=== PATIENT | male | born 1945 | race Hispanic/Latino ===

== ENCOUNTER → 2018-10-16 | Outpatient (CLI) | payer OTHER | END | disposition home or self-care (01) | LOC: RAH 10:00 | PROVIDERS: ATTEND Family Medicine | DX: N28.1 Cyst of kidney, acquired (principal); I70.90 Unspecified atherosclerosis | CPT/HCPCS: 76700 ==

== ENCOUNTER → 2018-12-30 | Outpatient (CLI) | payer OTHER | END | disposition home or self-care (01) | LOC: RAH 09:40 | PROVIDERS: ATTEND Family Medicine | DX: Q61.01 Congenital single renal cyst (principal); E27.8 Other specified disorders of adrenal gland | CPT/HCPCS: 76770 ==

== ENCOUNTER 2019-03-13 08:32 | Day surgery (SDC) | payer OTHER ==
--- NOTE | 2019-03-11 11:14 | NUR ---
ABNORMAL EKG INFORMED DR PEMBERTON REGARDING ABNORMAL EKG. PER DR PEMBERTON, OK TO PROCEED WITH SCHEDULED PROCEDURE PLANNED. Addendum: 03/12/19 at 1126 by JANET PATEL RN RN INCORRECT TIME. TIME SHOULD BE 1800 ON 03/11/19.
[2019-03-11 16:02] LABS: EOSINOPHILS % (AUTO) 3.2 % (0.0-8.0); HEMATOCRIT 34.9 % (42-54); LYMPHOCYTES % (AUTO) 20.4 % (21.0-51.0); MEAN CORPUSCULAR HEMOGLOBIN 30.1 pg (27.0-33.0); MEAN CORPUSCULAR HGB CONC 35.8 g/dL (32.0-36.0); MEAN CORPUSCULAR VOLUME 84.2 fL (79-99); MONOCYTES % (AUTO) 9.2 % (3.0-13.0); NEUTROPHILS % (AUTO) 66.2 % (40.0-77.0); PLATELET COUNT (AUTO) 218 K/uL (130-400); RED BLOOD CELL COUNT(AUTO) 4.15 MIL/uL (4.50-6.20); RED CELL DISTRIBUTION WIDTH 13.7 % (11.0-15.5)
[2019-03-11 16:09] LABS: CREATININE 1.5 mg/dL (0.5-1.5); POTASSIUM 4.4 mmol/L (3.5-5.1)
[2019-03-11 16:25] LABS: APPEARANCE,URINE Clear (CLEAR); BILIRUBIN,URINE Negative (NEGATIVE); COLOR,URINE Yellow (YELLOW); GLUCOSE, URINE (UA) Negative (NEGATIVE); KETONES,URINE Negative (NEGATIVE); LEUKOCYTE ESTERASE ,URINE Negative (NEGATIVE); NITRATE,URINE Negative (NEGATIVE); OCCULT BLOOD,URINE Trace (NEGATIVE); PROTEIN,URINE Negative (NEGATIVE); UROBILINOGEN,URINE 0.2 mg/dL (0.2-1.0)
[2019-03-11 16:52] LABS: BACTERIA,URINE Rare /HPF (None Seen); RBC,URINE 0-1 /HPF (0-1); SQUAMOUS EPITHELIAL CELL,UR None Seen /HPF (0-2); WBC,URINE 0-1 /HPF (0-1)
[2019-03-11 17:18] VITALS: BP 175/88
--- NOTE | 2019-03-11 17:56 | NUR ---
ALLERGIES PER PATIENT, HE IS NOT ALLERGIC TO ANY MEDICATIONS. HE STATES HE IS ONLY ALLERGIC TO [place].
[2019-03-13] VITALS (17 sets, daily range): BP systolic 122–161; BP diastolic 70–91
[~2019-03-13] VITALS: Ht 180.3 cm; Wt 94.4 kg
[~2019-03-13 08:32] MED LIST: GENTAMICIN 80 MG/NS 100 ML PB 100 ML IV SCH; LISI40TA4 PO; ZOSYN 3.375GM+NS 50ML 50 ML IV SCH
[2019-03-13] MEDS ORDERED: SODIUM CHLORIDE 0.9% 1000ML 1,000 ML IV ONE (09:09)
[2019-03-13] MEDS ORDERED: LEVO500T89 PO (10:21)
[2019-03-13] MEDS ORDERED: HYDR25TA PO (10:21)
--- NOTE | 2019-03-13 11:50 | NUR ---
SALINE ENEMA ORDER PER DR PERSAUD, UP TO BATHROOM. EXPELLED SMALL AMOUNT OF STOOL AND GAS
== END 2019-03-13 15:02 | disposition home or self-care (01) ==
LOC: DAH 08:32
PROVIDERS: ATTEND Urology
DX: C61 Malignant neoplasm of prostate (principal); N40.0 Benign prostatic hyperplasia without lower urinary tract symptoms; R97.20 Elevated prostate specific antigen [PSA]; Z72.89 Other problems related to lifestyle; Z98.890 Other specified postprocedural states; E66.9 Obesity, unspecified; Z68.29 Body mass index [BMI] 29.0-29.9, adult; Z79.899 Other long term (current) drug therapy; Z79.2 Long term (current) use of antibiotics; Z91.018 Allergy to other foods; Z87.891 Personal history of nicotine dependence; Z82.49 Family history of ischemic heart disease and other diseases of the circulatory system
CPT/HCPCS: 36415; 55700; 71045; 76942; 80048; 81001; 85025; 87088; 93005; A4215 ×2; A4221; A4222; A4223 ×2; A4358; A4600; A6260; J1580; J2543; J7030; J7120

== ENCOUNTER → 2019-05-30 | Outpatient (CLI) | payer OTHER ==
[~2019-05-30] MED LIST changes: -GENTAMICIN 80 MG/NS 100 ML PB 100 ML IV SCH; +HYDR25TA PO; +IOHEXOL 350 MG/ML 100ML INFUS..BTL IV ONE; +LEVO500T89 PO; -ZOSYN 3.375GM+NS 50ML 50 ML IV SCH
== END | disposition home or self-care (01) ==
LOC: RAH 08:16
PROVIDERS: ATTEND Internal Medicine Cardiovascular Disease
DX: I70.0 Atherosclerosis of aorta (principal); D35.00 Benign neoplasm of unspecified adrenal gland; I45.6 Pre-excitation syndrome; I71.02 Dissection of abdominal aorta; R94.31 Abnormal electrocardiogram [ECG] [EKG]
CPT/HCPCS: 71275; 74174; Q9967

== ENCOUNTER → 2019-06-05 | Outpatient (CLI) | payer OTHER ==
[~2019-06-05] MED LIST changes: -IOHEXOL 350 MG/ML 100ML INFUS..BTL IV ONE
== END | disposition home or self-care (01) ==
LOC: RAH 13:02
PROVIDERS: ATTEND Internal Medicine Cardiovascular Disease
DX: Z13.6 Encounter for screening for cardiovascular disorders (principal)
CPT/HCPCS: 75571

== ENCOUNTER → 2019-07-31 | Outpatient (CLI) | payer OTHER ==
[~2019-07-31] VITALS: Ht 180.3 cm; Wt 93.9 kg
[~2019-07-31] MED LIST changes: +REGADENOSON 0.4 MG/5 ML PF SYG IVP SCH
== END | disposition home or self-care (01) ==
LOC: SHCH 08:33
PROVIDERS: ATTEND Internal Medicine Cardiovascular Disease
DX: I25.89 Other forms of chronic ischemic heart disease (principal); I25.10 Atherosclerotic heart disease of native coronary artery without angina pectoris
CPT/HCPCS: 78452; 93017; 96374; A9500 ×2; J2785

== ENCOUNTER 2019-11-13 05:48 | Day surgery (SDC) | payer OTHER ==
[2019-11-13] VITALS (11 sets, daily range): BP systolic 118–155; BP diastolic 59–83; PULSE 66–81; RESP 12–20; TEMP 97.9
[2019-11-13] MEDS ORDERED: SODIUM BICARB 50MEQ 50ML VIAL ONE (10:06)
[2019-11-13] MEDS ORDERED: LIDOCAINE HCL 2% 20ML ONE (10:07)
[2019-11-13] MEDS ORDERED: NITROGLYCERIN 2 MG/VIAL VIAL IV ONE (10:07)
[2019-11-13] MEDS ORDERED: MIDAZOLAM HCL 1 MG/ML 2ML VIAL ONE ×2 (10:07→10:50)
[2019-11-13] MEDS ORDERED: HEPARIN SODIUM 1000UNIT/ML 10ML VIAL ONE (10:07)
[2019-11-13] MEDS ORDERED: MEPERIDINE-PF 25 MG/ML SYG ONE ×2 (10:07→10:50)
[2019-11-13] MEDS ORDERED: IOHEXOL 350 MG/ML 100ML INFUS..BTL IV ONE (10:12)
[2019-11-13] MEDS ORDERED: METHYLPREDNISOLONE SOD SUCC 125MG/2ML VIAL ONE (10:14)
[2019-11-13] MEDS ORDERED: DiphenhydrAMINE HCL 50 MG/ML VIAL ONE (10:15)
[2019-11-13] MEDS ORDERED: SODIUM CHLORIDE 0.9% 1000ML 1,000 ML IV SCH (11:21)
--- NOTE | 2019-11-13 16:30 | NUR ---
Pt clear for discharge. Tolerating fluids/solids well, voiding well, ambulating well. Pt denies any severe pain, shortness of breath, dizziness or lightheadedness. Pt does reports an upset stomach. He states that it is not severe, but that he can't tolerate eating and laying down. He states that he has gotten this feeling before and that it will feel better once he is able to walk around. Pt denies any chest pain/pressure, shortness of breath, aching in jaws/back/arms/neck or any other sensation. Pt instructed of emergency signs to be aware of and to call 911 if they occurred. Dressing to right groin remains clean, dry and intact, site soft, non-tender. Pt instructed in routine and emergency care of the right groin catheter site. Pt's spouse instructed in routine and emergency care at the vehicle.
== END 2019-11-13 17:15 | disposition home or self-care (01) ==
LOC: DAH 05:48
PROVIDERS: ATTEND Internal Medicine Cardiovascular Disease
DX: I73.9 Peripheral vascular disease, unspecified (principal); I71.4 Abdominal aortic aneurysm, without rupture; E78.5 Hyperlipidemia, unspecified; I25.10 Atherosclerotic heart disease of native coronary artery without angina pectoris; I10 Essential (primary) hypertension; Z85.46 Personal history of malignant neoplasm of prostate; Z79.899 Other long term (current) drug therapy; Z79.01 Long term (current) use of anticoagulants
CPT/HCPCS: 36415; 71045; 75625; 80048; 81001; 85025; 85610; 85730; 93005; 93306; 93356; 93458; 96374; A4215; A4216; A4221; A4222; A4223 ×3; A4606; A4663; C1760; C1894; J1200; J1644; J2175 ×2; J2250 ×2; J2930; J3490 ×3; Q9967

== ENCOUNTER 2019-11-19 12:00 | Inpatient (IN) | payer OTHER ==
[~2019-11-19] VITALS: Ht 177.8 cm; Wt 91.0 kg
[~2019-11-19 12:00] MED LIST changes: +ASPI-556 PO; +LABE200T5 PO; -LEVO500T89 PO; -LISI40TA4 PO; -REGADENOSON 0.4 MG/5 ML PF SYG IVP SCH; +ROSU5TAB12 PO
[2019-11-19 15:18] LABS: BASOPHILS % (AUTO) 0.4 % (0.0-5.0); HEMATOCRIT 34.1 % (42-54); LYMPHOCYTES % (AUTO) 10.1 % (21.0-51.0); MEAN CORPUSCULAR HEMOGLOBIN 27.9 pg (27.0-33.0); MEAN CORPUSCULAR HGB CONC 33.4 g/dL (32.0-36.0); MEAN CORPUSCULAR VOLUME 83.4 fL (79-99); MONOCYTES % (AUTO) 12.5 % (3.0-13.0); NEUTROPHILS % (AUTO) 72.6 % (40.0-77.0); PLATELET COUNT (AUTO) 206 K/uL (130-400); RED BLOOD CELL COUNT(AUTO) 4.09 MIL/uL (4.50-6.20); RED CELL DISTRIBUTION WIDTH 13.2 % (11.0-15.5); WHITE BLOOD COUNT (AUTO) 10.7 K/uL (4.8-10.8)
[2019-11-19 15:29] LABS: HEMOGLOBIN A1C 6.8 % (4.0-6.0)
[2019-11-19 15:31] LABS: INR 0.96 (0.85-1.15); PROTHROMBIN TIME 10.4 SEC (9.6-11.6)
[2019-11-19 15:32] VITALS: BP 173/81
[2019-11-19 15:36] LABS: ALBUMIN 3.8 g/dL (3.5-5.0); BILIRUBIN,TOTAL 0.3 mg/dL (0.2-1.0); CREATININE 1.6 mg/dL (0.5-1.5); POTASSIUM 3.4 mmol/L (3.5-5.1); TOTAL PROTEIN, SERUM 7.4 g/dL (6.0-8.3)
--- NOTE | 2019-11-19 16:19 | NUR ---
LABS ABNORMAL LABS REPORTED TO DR. RICE NO FURTHER ORDERS GIVEN.
[2019-11-20] VITALS (36 sets, daily range): BP systolic 101–175; BP diastolic 50–82
[2019-11-20] MEDS: CEFUROXIME SODIUM 1.5 GM VIAL IVP SCH ×2 (06:00→15:01)
[2019-11-20] MEDS ORDERED: SODIUM CHLORIDE 0.9% 1000ML 1,000 ML IV ONE ×2 (06:49→14:41)
[2019-11-20] MEDS ORDERED: MEGE40TA22 PO (08:13)
[2019-11-20] MEDS ORDERED: EPINEPHRINE 10 MG in SODIUM CHLORIDE 0.9% 240 ML IV PRN (08:45)
[2019-11-20] MEDS ORDERED: AMINOCAPROIC ACID 15,000 MG in SODIUM CHLORIDE 0.9% 500ML 500 ML IV PRN (08:45)
[2019-11-20] MEDS ORDERED: NOREPINEPHRINE BITARTRATE 8 MG in DEXTROSE 5%-WATER 250 ML IV PRN (08:45)
[2019-11-20] MEDS ORDERED: NITROGLYCERIN 50 MG/D5% WATER 1 BOT ONE (09:02)
[2019-11-20] MEDS ORDERED: PAPAVERINE HCL 30 MG/ML 2ML VIAL ONE (09:07)
[2019-11-20] MEDS ORDERED: CEFAZOLIN SODIUM 1 GM VIAL ONE ×3 (09:07→14:46)
[2019-11-20] MEDS ORDERED: HEPARIN SODIUM 1000UNIT/ML 10ML VIAL ONE ×2 (10:27→10:36)
[2019-11-20] MEDS ORDERED: FENTANYL CITRATE PF 50 MCG/1 ML 20ML VIAL IJ ONE (10:36)
[2019-11-20] MEDS ORDERED: ESMOLOL HCL 10 MG/ML 10 ML VIAL ONE (10:36)
[2019-11-20] MEDS ORDERED: PROTAMINE SULFATE 10 MG/ML 25ML VIAL IV ONE (10:36)
[2019-11-20] MEDS ORDERED: EPINEPHRINE 1 MG/ML AMPULE ONE (10:36)
[2019-11-20] MEDS ORDERED: PROPOFOL 10 MG/ML 20ML VIAL IV ONE (10:36)
[2019-11-20] MEDS ORDERED: AMINOCAPROIC ACID 250 MG/ML 20 ML VIAL IV ONE (10:36)
[2019-11-20] MEDS ORDERED: LIDOCAINE PF 2% 5ML ABBOJECT ONE ×2 (10:36→10:38)
[2019-11-20] MEDS ORDERED: NOREPINEPHRINE BITARTRATE 1 MG/1 ML ML IV ONE (10:36)
[2019-11-20] MEDS ORDERED: MIDAZOLAM HCL 1 MG/ML 2ML VIAL ONE (10:37)
[2019-11-20] MEDS ORDERED: ROCURONIUM 10MG/1ML SYR 10 MG/ML ML ONE (10:37)
[2019-11-20] MEDS ORDERED: SODIUM BICARB 8.4% 50ML SYRINGE ONE (10:37)
[2019-11-20] MEDS ORDERED: ETOMIDATE 2 MG/ML 10 ML VIAL ONE (10:37)
[2019-11-20] MEDS ORDERED: VASOPRESSIN 20 UNITS/ML 1ML VIAL ONE (10:38)
[2019-11-20] MEDS ORDERED: AMIODARONE HCL 50 MG/ML 3 ML VIAL ONE (10:38)
[2019-11-20] MEDS ORDERED: CEFAZOLIN SODIUM 1 GM VIAL IVP SCH (11:15)
[2019-11-20 11:39] LABS: ABG BASE EXCESS -0.5 mmol/L (-2.0-3.0); ABG HCO3 22.8 mmol/L (21.0-28.0); ABG PCO2 33 mmHg (35-48)
[2019-11-20] MEDS ORDERED: FENTANYL CITRATE PF 50 MCG/1 ML 5ML AMP IV ONE (14:42)
[2019-11-20] MEDS ORDERED: SODIUM CHLORIDE 0.9% 500ML 500 ML IV SCH (15:02)
[2019-11-20] MEDS ORDERED: NITROGLYCERIN 50 MG/D5% WATER 250 BOT IV SCH (15:15)
[2019-11-20] MEDS ORDERED: SODIUM CHLORIDE 0.9% 250 ML IV PRN (15:15)
[2019-11-20] MEDS ORDERED: DEXTROSE 50%-WATER 50 ML DISP.SYRIN IV PRN (15:15)
[2019-11-20] MEDS ORDERED: INSULIN REGULAR, HUMAN 3ML 100 UNIT in SODIUM CHLORIDE 0.9% 99 ML IV SCH ×2 (15:15)
[2019-11-20] MEDS ORDERED: GLUCAGON 1MG KIT 1 MG ML IM PRN (15:15)
[2019-11-20] MEDS ORDERED: MORPHINE SULFATE 2 MG/ML 1ML SYG IV PRN ×2 (15:15)
[2019-11-20] MEDS ORDERED: ONDANSETRON HCL 4 MG/2 ML VIAL IV PRN (15:15)
[2019-11-20] MEDS ORDERED: ACETAMINOPHEN 650 MG SUPPOSITORY RC PRN (15:15)
[2019-11-20] MEDS ORDERED: POTASSIUM PHOS 15 mMOL+NS250ML 250 ML IV PRN (15:15)
[2019-11-20] MEDS ORDERED: PROPOFOL 1000 MG/100 ML 100 ML IV PRN (15:15)
[2019-11-20] MEDS ORDERED: SODIUM CHLORIDE 0.9% 10 ML VIAL IVP PRN (15:15)
[2019-11-20] MEDS ORDERED: ALBUMIN (HUMAN) 5% 250 ML IV PRN (15:15)
[2019-11-20] MEDS ORDERED: AMINOCAPROIC ACID 15,000 MG in SODIUM CHLORIDE 0.9% 250 ML IV SCH (15:15)
[2019-11-20] MEDS ORDERED: NOREPINEPHRINE 4MG/NS 250ML 250 ML IV PRN (15:15)
[2019-11-20] MEDS ORDERED: EPINEPHRINE 10 MG in DEXTROSE 5%-WATER 250 ML IV PRN (15:15)
[2019-11-20] MEDS ORDERED: ACETAMINOPHEN 325 MG TAB PO PRN ×2 (15:15)
[2019-11-20] MEDS ORDERED: SODIUM CHLORIDE 0.9% 1000ML 1,000 ML IV SCH (15:15)
[2019-11-20] MEDS ORDERED: SODIUM BICARB 50MEQ 50ML VIAL IV PRN (15:15)
--- NOTE | 2019-11-20 15:25 | NUR ---
PT RECEIVED FROM SURGERY... BBS PRESENT ET TUBE IN PLACE. OGT CLAMPED. GARSIA TO BEDSIDE DRAINAGE. LT RADIAL A-LINE PRESENT ALSO A RT INTERNAL JUGULAR CENTRAL LINE. CHEST TUBES X 2 TO [facility].
[2019-11-20 15:40] LABS: ABG BASE EXCESS 1.2 mmol/L (-2.0-3.0); ABG HCO3 24.9 mmol/L (21.0-28.0); ABG OXYGEN SATURATION 98.2 % (95.0-99.0); ABG PCO2 36 mmHg (35-48)
[2019-11-20] MEDS: POTASSIUM CHLORIDE 20MEQ/100ML 100 ML IV PRN ×4 (15:43→21:02)
[2019-11-20 15:44] LABS: HEMATOCRIT 26.8 % (42-54); MEAN CORPUSCULAR VOLUME 82.5 fL (79-99); RED BLOOD CELL COUNT(AUTO) 3.25 MIL/uL (4.50-6.20); RED CELL DISTRIBUTION WIDTH 13.1 % (11.0-15.5); WHITE BLOOD COUNT (AUTO) 12.3 K/uL (4.8-10.8)
[2019-11-20 15:59] LABS: CREATININE 1.2 mg/dL (0.5-1.5); MAGNESIUM 1.7 mg/dL (1.80-2.40); PHOSPHORUS 3.8 mg/dL (2.5-4.9); POTASSIUM 3.5 mmol/L (3.5-5.1)
[2019-11-20 16:00] LABS: INR 1.09 (0.85-1.15); PARTIAL THROMBOPLASTIN TIME 29.2 SEC (26.3-35.5); PROTHROMBIN TIME 11.7 SEC (9.6-11.6)
[2019-11-20] MEDS: MAGNESIUM 2GM PREMIX 50ML 50 ML IV PRN (16:09)
[2019-11-20] MEDS: CALCIUM GLUCONATE 1 GM in SODIUM CHLORIDE 0.9% 50 ML IV PRN ×2 (16:09→19:50)
--- NOTE | 2019-11-20 16:43 | NUR ---
PT NOW RESPONSIVE AND FOLLOWING COMMANDS-NODS NO TO PAIN.
[2019-11-20 17:09] LABS: ABG BASE EXCESS 0.8 mmol/L (-2.0-3.0); ABG HCO3 24.6 mmol/L (21.0-28.0); ABG OXYGEN SATURATION 97.7 % (95.0-99.0); ABG PCO2 36 mmHg (35-48)
--- NOTE | 2019-11-20 17:36 | NUR ---
I HAD DR MARIE REVIEW CXR WHILE HE WAS IN CVR- HE WILL LET DR RICE KNOW. I ALSO SENT MESSAGE FOR DR RICE TO REVIEW CXR. PT IS STABLE AND IN NO DISTRESS. THANK YOU
[2019-11-20 18:35] LABS: ABG BASE EXCESS 0.9 mmol/L (-2.0-3.0); ABG OXYGEN SATURATION 94.8 % (95.0-99.0); ABG PCO2 38 mmHg (35-48)
--- NOTE | 2019-11-20 18:49 | NUR ---
HAND OFF REPORT GIVEN TO SHERICE GANNON
--- NOTE | 2019-11-20 19:15 | NUR ---
Dr. Nolan called and ordered another Stat chest XR for patient.
[2019-11-20 19:40] LABS: ABG BASE EXCESS 1.9 mmol/L (-2.0-3.0); ABG HCO3 25.8 mmol/L (21.0-28.0); ABG OXYGEN SATURATION 96.7 % (95.0-99.0); ABG PCO2 38 mmHg (35-48)
[2019-11-20] MEDS: ATORVASTATIN CALCIUM 10 MG TABLET PO SCH (19:53)
[2019-11-20] MEDS ORDERED: CEFAZOLIN SODIUM 1 GM VIAL IV SCH (20:15)
[2019-11-20 22:08] LABS: ABG BASE EXCESS 2.1 mmol/L (-2.0-3.0); ABG HCO3 26.3 mmol/L (21.0-28.0); ABG OXYGEN SATURATION 97.5 % (95.0-99.0); ABG PCO2 39 mmHg (35-48)
--- NOTE | 2019-11-20 22:20 | NUR ---
Extubated at 2220 to aerosol mask 35% after passing all respiratory weaning trials. Patient tolerated well.
[2019-11-20] MEDS: CEFAZOLIN SODIUM 1 GM VIAL IV SCH (22:41)
[2019-11-20 23:35] LABS: ABG OXYGEN SATURATION 96.5 % (95.0-99.0); ABG PCO2 38 mmHg (35-48)
[2019-11-20] MEDS ORDERED: CALCIUM GLUCONATE 1 GM/10 ML VIAL IV ONE (23:38)
[2019-11-21] VITALS (47 sets, daily range): BP systolic 99–177; BP diastolic 43–100
[2019-11-21] MEDS: TRAMADOL HCL 50 MG TABLET PO PRN ×4 (01:57→21:32)
[2019-11-21 04:03] LABS: ABG BASE EXCESS 0.5 mmol/L (-2.0-3.0); ABG HCO3 24.5 mmol/L (21.0-28.0); ABG OXYGEN SATURATION 96.7 % (95.0-99.0); ABG PCO2 38 mmHg (35-48)
[2019-11-21 04:30] LABS: HEMATOCRIT 27.8 % (42-54); MEAN CORPUSCULAR HEMOGLOBIN 27.8 pg (27.0-33.0); MEAN CORPUSCULAR HGB CONC 33.5 g/dL (32.0-36.0); MEAN CORPUSCULAR VOLUME 83.2 fL (79-99); RED BLOOD CELL COUNT(AUTO) 3.34 MIL/uL (4.50-6.20); WHITE BLOOD COUNT (AUTO) 13.7 K/uL (4.8-10.8)
[2019-11-21 04:45] LABS: INR 1.09 (0.85-1.15); PARTIAL THROMBOPLASTIN TIME 31.5 SEC (26.3-35.5); PROTHROMBIN TIME 11.7 SEC (9.6-11.6)
[2019-11-21 05:06] LABS: CREATININE 1.4 mg/dL (0.5-1.5); MAGNESIUM 1.9 mg/dL (1.80-2.40); PHOSPHORUS 3.3 mg/dL (2.5-4.9); POTASSIUM 4.3 mmol/L (3.5-5.1)
[2019-11-21] MEDS: MAGNESIUM 2GM PREMIX 50ML 50 ML IV PRN (05:12)
[2019-11-21] MEDS: CEFAZOLIN SODIUM 1 GM VIAL IV SCH ×2 (06:38→16:38)
[2019-11-21] MEDS: CALCIUM GLUCONATE 1 GM in SODIUM CHLORIDE 0.9% 50 ML IV PRN ×2 (07:47→13:23)
[2019-11-21] MEDS: ASPIRIN 325MG EC TAB 325 MG TABLET.DR PO SCH (07:56)
[2019-11-21] MEDS: FAMOTIDINE/PF 20 MG/2 ML VIAL IV SCH (07:58)
[2019-11-21] MEDS: FUROSEMIDE 10 MG/ML 2ML VIAL IV SCH ×2 (07:58→21:32)
--- NOTE | 2019-11-21 11:45 | NUR ---
DC PLAN TRIED TO VISIT WITH PATIENT. 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 PATIENT WANTING TO LAY DOWN AND WAS TIRED. ESCOBAR WILL CONTINUE TO FOLLOW. Addendum: 11/21/19 at 1146 by RANDY NGUYEN RN CM Amended: Links added.
[2019-11-21] MEDS ORDERED: METOPROLOL TARTRATE 25 MG TAB PO SCH (13:00)
[2019-11-21] MEDS ORDERED: CALCIUM GLUCONATE 1 GM/10 ML VIAL IV ONE (13:18)
[2019-11-21] MEDS: LABETALOL HCL 200 MG TABLET PO SCH ×2 (13:20→21:33)
[2019-11-21] MEDS ORDERED: CEFAZOLIN SODIUM 1 GM VIAL ONE (16:36)
[2019-11-21] MEDS ORDERED: LABETALOL HCL 200 MG TABLET PO SCH (21:00)
[2019-11-21] MEDS: ATORVASTATIN CALCIUM 10 MG TABLET PO SCH (21:33)
[2019-11-22] VITALS (22 sets, daily range): BP systolic 96–139; BP diastolic 49–76
[2019-11-22 05:52] LABS: HEMATOCRIT 24.6 % (42-54); MEAN CORPUSCULAR HEMOGLOBIN 28.3 pg (27.0-33.0); MEAN CORPUSCULAR HGB CONC 34.1 g/dL (32.0-36.0); MEAN CORPUSCULAR VOLUME 82.8 fL (79-99); RED BLOOD CELL COUNT(AUTO) 2.97 MIL/uL (4.50-6.20); RED CELL DISTRIBUTION WIDTH 13.1 % (11.0-15.5); WHITE BLOOD COUNT (AUTO) 11.1 K/uL (4.8-10.8)
[2019-11-22 06:00] LABS: CREATININE 1.3 mg/dL (0.5-1.5); POTASSIUM 3.4 mmol/L (3.5-5.1)
[2019-11-22] MEDS: INSULIN HUMULIN R 100 UNIT/ML 3ML SQ SCH ×4 (07:13→21:00)
[2019-11-22] MEDS ORDERED: METOPROLOL TARTRATE 25 MG TAB PO SCH (09:00)
[2019-11-22] MEDS: FAMOTIDINE/PF 20 MG/2 ML VIAL IV SCH (09:58)
[2019-11-22] MEDS: ASPIRIN 325MG EC TAB 325 MG TABLET.DR PO SCH (09:58)
[2019-11-22] MEDS: LABETALOL HCL 200 MG TABLET PO SCH ×2 (09:58→21:37)
[2019-11-22] MEDS: FUROSEMIDE 20 MG TABLET PO SCH ×2 (09:58→16:18)
[2019-11-22] MEDS: POTASSIUM CHLORIDE 20MEQ/100ML 100 ML IV PRN ×2 (09:59→12:04)
--- NOTE | 2019-11-22 10:30 | NUR ---
K 3.4, COVERED BY PROTOCOL.
--- NOTE | 2019-11-22 13:30 | NUR ---
PHYSICAL THERAPY IN TO SEE PATIENT, AMBULATED TO BATHROOM AND THEN TO CHAIR. TOLERATED WELL.
--- NOTE | 2019-11-22 15:20 | NUR ---
RE-CHECK K 4.3
--- NOTE | 2019-11-22 15:38 | NUR ---
CALLED AND SPOKE WITH PT'S , REN ([phone]) TO INFORM HER OF PATIENT BEING TRANSFERRED TO ROOM 424. GIVEN PHONE NUMBER TO NURSES STATION AND PT'S ROOM.
[2019-11-22] MEDS: TRAMADOL HCL 50 MG TABLET PO PRN (15:46)
--- NOTE | 2019-11-22 15:55 | NUR ---
REPORTED OFF TO TERESSA ALVAREZ.
--- NOTE | 2019-11-22 15:55 | NUR ---
REMOVED RIGHT IJ CORDIS, SITE WITHOUT REDNESS NOTED.
--- NOTE | 2019-11-22 16:10 | NUR ---
TRANSFER FROM ICU RECEIVED PT IN CHAIR AND UPON ARRIVAL TO [facility], PT AMBULATING TO BATHROOM AND BACK TO CHAIR, GAIT SLOW BUT STEADY WITH ASSIST, GAIT BELT, PT DID C/O DYSPNEA ON EXERTION THAT RESOLVED UPON SITTING BACK IN CHAIR AND O2 2LNC, INCENTIVE SPIROMETRY AVERAGING 1250ML PER ATTEMPT, INFORMED PT THAT INCREASED USE OF INCENTIVE SPIROMETER EVERY HOUR WOULD ASSIST WITH LESS USE OF NASAL CANNULA. PT RESTING COMFORTABLY IN CHAIR, CALL LIGHT WITHIN REACH.
--- NOTE | 2019-11-22 16:15 | NUR ---
DR. RICE IN TO SEE PATIENT, UPDATE GIVEN.
--- NOTE | 2019-11-22 16:23 | NUR ---
TAKEN TO ROOM 424 VIA CARDIAC CHAIR BY TERESSA ALVAREZ.
[2019-11-22] MEDS: ATORVASTATIN CALCIUM 10 MG TABLET PO SCH (21:37)
[2019-11-23 03:54] VITALS: BP 136/76
[2019-11-23] MEDS: INSULIN HUMULIN R 100 UNIT/ML 3ML SQ SCH ×4 (05:31→21:00)
[2019-11-23 06:02] LABS: HEMATOCRIT 25.1 % (42-54); MEAN CORPUSCULAR HGB CONC 33.9 g/dL (32.0-36.0); MEAN CORPUSCULAR VOLUME 82.6 fL (79-99); RED BLOOD CELL COUNT(AUTO) 3.04 MIL/uL (4.50-6.20); RED CELL DISTRIBUTION WIDTH 13.1 % (11.0-15.5)
[2019-11-23 06:22] LABS: CREATININE 1.1 mg/dL (0.5-1.5); POTASSIUM 3.2 mmol/L (3.5-5.1)
[2019-11-23 07:00] VITALS: BP 131/62
[2019-11-23] MEDS ORDERED: POTASSIUM CHLORIDE 10% ELIXIR 20 MEQ/15 ML UDCUP PO PRN (08:45)
[2019-11-23] MEDS ORDERED: LIDOCAINE HCL-MPF 1% 2ML VIAL IV PRN (08:45)
[2019-11-23] MEDS ORDERED: POTASSIUM CHLORIDE 20MEQ/100ML 100 ML IV PRN (08:45)
[2019-11-23] MEDS: FAMOTIDINE/PF 20 MG/2 ML VIAL IV SCH (09:00)
[2019-11-23] MEDS: FUROSEMIDE 20 MG TABLET PO SCH ×2 (09:00→16:49)
[2019-11-23] MEDS: ASPIRIN 325MG EC TAB 325 MG TABLET.DR PO SCH (09:01)
[2019-11-23] MEDS: LABETALOL HCL 200 MG TABLET PO SCH ×2 (09:01→21:17)
[2019-11-23] MEDS: TRAMADOL HCL 50 MG TABLET PO PRN (09:01)
[2019-11-23] MEDS: ENOXAPARIN SODIUM 30 MG/0.3 ML SQ SCH (09:02)
[2019-11-23 11:00] VITALS: BP 130/73
[2019-11-23 15:00] VITALS: BP 139/73
[2019-11-23] MEDS: POTASSIUM CHLORIDE 20 MEQ ERTAB PO PRN (16:49)
[2019-11-23 18:55] VITALS: BP 121/72
[2019-11-23] MEDS: ATORVASTATIN CALCIUM 10 MG TABLET PO SCH (21:17)
[2019-11-23 23:13] VITALS: BP 99/54
[2019-11-24 03:26] VITALS: BP 122/75
[2019-11-24 05:21] LABS: HEMATOCRIT 25.3 % (42-54); MEAN CORPUSCULAR HEMOGLOBIN 28.3 pg (27.0-33.0); MEAN CORPUSCULAR VOLUME 83.2 fL (79-99); RED BLOOD CELL COUNT(AUTO) 3.04 MIL/uL (4.50-6.20); RED CELL DISTRIBUTION WIDTH 13.1 % (11.0-15.5); WHITE BLOOD COUNT (AUTO) 8.9 K/uL (4.8-10.8)
[2019-11-24 05:29] LABS: CREATININE 1.1 mg/dL (0.5-1.5); POTASSIUM 3.2 mmol/L (3.5-5.1)
[2019-11-24] MEDS: INSULIN HUMULIN R 100 UNIT/ML 3ML SQ SCH ×4 (06:05→20:56)
[2019-11-24] MEDS: POTASSIUM CHLORIDE 20 MEQ ERTAB PO PRN ×3 (06:09→12:35)
[2019-11-24 08:00] VITALS: BP 148/74
[2019-11-24] MEDS: ASPIRIN 325MG EC TAB 325 MG TABLET.DR PO SCH (09:36)
[2019-11-24] MEDS: FUROSEMIDE 20 MG TABLET PO SCH ×2 (09:36→16:46)
[2019-11-24] MEDS: FAMOTIDINE/PF 20 MG/2 ML VIAL IV SCH (09:36)
[2019-11-24] MEDS: LABETALOL HCL 200 MG TABLET PO SCH ×2 (09:37→20:28)
[2019-11-24] MEDS: ENOXAPARIN SODIUM 30 MG/0.3 ML SQ SCH (09:37)
[2019-11-24 11:50] VITALS: BP 113/60
[2019-11-24 20:20] VITALS: BP 125/77
[2019-11-24] MEDS: ATORVASTATIN CALCIUM 10 MG TABLET PO SCH (20:27)
--- NOTE | 2019-11-24 23:00 | NUR ---
PT ABLE TO TAKE MEDICATIONS WELL. NO DISTRESS NOTED. DRESSING IN PLACE. WILL REMOVE IT IN THE AM. PT IS POSSIBLE DC FOR THE AM. ABLE TO AMBULATE. DOES HAVE SOME GENERAL BODY WEAKNESS.
[2019-11-25 00:20] VITALS: BP 125/63
[2019-11-25 04:20] VITALS: BP 139/77
[2019-11-25] MEDS: INSULIN HUMULIN R 100 UNIT/ML 3ML SQ SCH ×2 (06:00→11:26)
[2019-11-25 07:55] VITALS: BP 135/62
[2019-11-25 08:04] LABS: CREATININE 1.3 mg/dL (0.5-1.5); POTASSIUM 3.9 mmol/L (3.5-5.1)
[2019-11-25] MEDS: LABETALOL HCL 200 MG TABLET PO SCH (09:24)
[2019-11-25] MEDS: FUROSEMIDE 20 MG TABLET PO SCH (09:25)
[2019-11-25] MEDS: FAMOTIDINE/PF 20 MG/2 ML VIAL IV SCH (09:25)
[2019-11-25] MEDS: ASPIRIN 325MG EC TAB 325 MG TABLET.DR PO SCH (09:25)
[2019-11-25] MEDS: ENOXAPARIN SODIUM 30 MG/0.3 ML SQ SCH (09:26)
[2019-11-25] MEDS: TRAMADOL HCL 50 MG TABLET PO PRN (09:33)
[2019-11-25 11:38] VITALS: BP 104/63
--- NOTE | 2019-11-25 11:41 | NUR ---
CM Note: POC CM met with pt discussed dc plans. Pt is independent prior to admission, lives at home with spouse, daughter lives close by. Pt hs a walker, shower chair, and bedside commode. Denies any other equipments/services. Feels safe to go back home, spouse and daughter able to assist with transportation and need. Elham santiago/[facility] pt while CM in room. Will follow pt for the next 30 days at home to evaluate any needs. Pt uses [employer]. DC plan to home once stable. CM to cont to follow up. Addendum: 11/25/19 at 1143 by GENE DAVIS LVN CM Amended: Links added.
[2019-11-25 15:39] VITALS: BP 139/76
== END 2019-11-25 18:20 | disposition home or self-care (01) | DRG 233 ==
LOC: DAHIP 11-20 06:18 → EDSTATUS 11-20 12:00 → 2CV 11-20 14:36 → 2CH 11-21 07:01 → 2BH 11-21 18:44 → 4DH 11-22 15:59
PROVIDERS: ADMIT Thoracic Surgery (Cardiothoracic Vascular Surgery); ATTEND Thoracic Surgery (Cardiothoracic Vascular Surgery)
PROC: 06BQ4ZZ Excision of Left Saphenous Vein, Percutaneous Endoscopic Approach (ICD-10-PCS; 2019-11-20)
PROC: 0210099 Bypass Coronary Artery, One Artery from Left Internal Mammary with Autologous Venous Tissue, Open Approach (ICD-10-PCS; principal; 2019-11-20 10:57)
PROC: 021109W Bypass Coronary Artery, Two Arteries from Aorta with Autologous Venous Tissue, Open Approach (ICD-10-PCS; 2019-11-20 10:57)
PROC: 4A023N7 Measurement of Cardiac Sampling and Pressure, Left Heart, Percutaneous Approach (ICD-10-PCS; 2019-11-25)
PROC: B2111ZZ Fluoroscopy of Multiple Coronary Arteries using Low Osmolar Contrast (ICD-10-PCS; 2019-11-25)
PROC: B4101ZZ Fluoroscopy of Abdominal Aorta using Low Osmolar Contrast (ICD-10-PCS; 2019-11-25)
DX: I25.10 Atherosclerotic heart disease of native coronary artery without angina pectoris (principal); I50.33 Acute on chronic diastolic (congestive) heart failure; I71.00 Dissection of unspecified site of aorta; I13.0 Hypertensive heart and chronic kidney disease with heart failure and stage 1 through stage 4 chronic kidney disease, or unspecified chronic kidney disease; Z91.048 Other nonmedicinal substance allergy status; E78.5 Hyperlipidemia, unspecified; N18.9 Chronic kidney disease, unspecified; Z79.84 Long term (current) use of oral hypoglycemic drugs; Z79.899 Other long term (current) drug therapy; Z85.46 Personal history of malignant neoplasm of prostate; Z87.891 Personal history of nicotine dependence; Z91.010 Allergy to peanuts; I72.3 Aneurysm of iliac artery; G89.29 Other chronic pain; E87.6 Hypokalemia; E78.00 Pure hypercholesterolemia, unspecified; E11.22 Type 2 diabetes mellitus with diabetic chronic kidney disease; E87.70 Fluid overload, unspecified; I70.1 Atherosclerosis of renal artery; Z88.8 Allergy status to other drugs, medicaments and biological substances; Z91.018 Allergy to other foods; D63.8 Anemia in other chronic diseases classified elsewhere; Z98.890 Other specified postprocedural states
CPT/HCPCS: 36415; 71045; 71046; 80048; 80053; 82330; 82435; 82803; 82947; 82948; 83036; 83605; 83735; 84100; 84132; 84295; 85018; 85025; 85027; 85610; 85730; 86850; 86900; 86901; 86922; 93005; 93880; 94002; 94010; 94150; 97039; A4357; A7048; G0378; J0171; J0282; J0610; J0690; J0697; J1644; J1650; J1815; J1940; J2001; J2250; J2405; J2440; J2704; J2720; J3010; J3475; J3480; J3490; J7030; J7040; J7050; J7060; P9045

== ENCOUNTER 2020-04-15 11:50 | Emergency (ER) | payer OTHER ==
[~2020-04-15 11:50] MED LIST changes: +MEGE40TA22 PO
[2020-04-15 12:28] LABS: BASOPHILS % (AUTO) 0.4 % (0.0-5.0); EOSINOPHILS % (AUTO) 0.4 % (0.0-8.0); HEMATOCRIT 36.7 % (42-54); LYMPHOCYTES % (AUTO) 5.7 % (21.0-51.0); MEAN CORPUSCULAR HEMOGLOBIN 27.4 pg (27.0-33.0); MEAN CORPUSCULAR HGB CONC 34.9 g/dL (32.0-36.0); MEAN CORPUSCULAR VOLUME 78.4 fL (79-99); MONOCYTES % (AUTO) 10.3 % (3.0-13.0); NEUTROPHILS % (AUTO) 82.5 % (40.0-77.0); PLATELET COUNT (AUTO) 231 K/uL (130-400); RED BLOOD CELL COUNT(AUTO) 4.68 MIL/uL (4.50-6.20); RED CELL DISTRIBUTION WIDTH 13.4 % (11.0-15.5); WHITE BLOOD COUNT (AUTO) 13.9 K/uL (4.8-10.8)
[2020-04-15 12:38] LABS: CREATININE 1.4 mg/dL (0.5-1.5); POTASSIUM 3.2 mmol/L (3.5-5.1)
[2020-04-15 12:39] LABS: INR 1.01 (0.85-1.15); PARTIAL THROMBOPLASTIN TIME 28.4 SEC (26.3-35.5); PROTHROMBIN TIME 10.9 SEC (9.6-11.6)
[2020-04-15 12:42] LABS: ALBUMIN 4.3 g/dL (3.5-5.0); BILIRUBIN,TOTAL 0.7 mg/dL (0.2-1.0); TOTAL PROTEIN, SERUM 8.4 g/dL (6.0-8.3)
[2020-04-15 13:01] LABS: B-TYPE NATRIURETIC PEPTIDE 46 pg/mL (0-100)
[2020-04-15] MEDS ORDERED: SODIUM CHLORIDE 0.9% 500ML 500 ML IV ONE (13:32)
[2020-04-15] MEDS ORDERED: CYCLOBENZAPRINE HCL 10 MG TABLET ONE (13:51)
[2020-04-15] MEDS ORDERED: IOHEXOL-350 75 ML VIAL IV ONE (14:29)
== END 2020-04-15 15:47 | disposition home or self-care (01) ==
LOC: EDH 11:50
DX: M62.838 Other muscle spasm (principal); M79.604 Pain in right leg; G54.0 Brachial plexus disorders; I25.10 Atherosclerotic heart disease of native coronary artery without angina pectoris; Z95.1 Presence of aortocoronary bypass graft; I10 Essential (primary) hypertension; Z87.891 Personal history of nicotine dependence; Z79.899 Other long term (current) drug therapy
CPT/HCPCS: 36415; 71045; 71275; 80053; 82550; 83880; 84484; 85025; 85610; 85730; 93005; 93931; 99285; J7040; Q9967

== ENCOUNTER → 2020-05-06 | Outpatient (CLI) | payer OTHER | END | disposition home or self-care (01) | LOC: SHCH 09:38 | PROVIDERS: ATTEND Internal Medicine Cardiovascular Disease | DX: I08.0 Rheumatic disorders of both mitral and aortic valves (principal); I65.23 Occlusion and stenosis of bilateral carotid arteries; I73.9 Peripheral vascular disease, unspecified; I10 Essential (primary) hypertension | CPT/HCPCS: 93306; 93356; 93880; 93925 ==

== ENCOUNTER → 2020-06-16 | Outpatient (CLI) | payer OTHER | END | disposition home or self-care (01) | LOC: OIH 09:19 | PROVIDERS: ATTEND Family Medicine | DX: M47.816 Spondylosis without myelopathy or radiculopathy, lumbar region (principal); M48.061 Spinal stenosis, lumbar region without neurogenic claudication; M89.38 Hypertrophy of bone, other site; I70.90 Unspecified atherosclerosis; M54.5 Low back pain | CPT/HCPCS: 72100 ==

== ENCOUNTER 2020-07-03 10:59 | Emergency (ER) | payer OTHER ==
[2020-07-03 11:20] LABS: BASOPHILS % (AUTO) 0.6 % (0.0-5.0); LYMPHOCYTES % (AUTO) 12.2 % (21.0-51.0); MEAN CORPUSCULAR HEMOGLOBIN 28.5 pg (27.0-33.0); MEAN CORPUSCULAR HGB CONC 34.5 g/dL (32.0-36.0); MEAN CORPUSCULAR VOLUME 82.8 fL (79-99); MONOCYTES % (AUTO) 9.2 % (3.0-13.0); NEUTROPHILS % (AUTO) 75.8 % (40.0-77.0); PLATELET COUNT (AUTO) 231 K/uL (130-400); RED BLOOD CELL COUNT(AUTO) 4.59 MIL/uL (4.50-6.20); RED CELL DISTRIBUTION WIDTH 13.9 % (11.0-15.5); WHITE BLOOD COUNT (AUTO) 11.6 K/uL (4.8-10.8)
[2020-07-03 11:35] LABS: CREATININE 1.6 mg/dL (0.5-1.5); POTASSIUM 3.4 mmol/L (3.5-5.1)
[2020-07-03 11:39] LABS: BILIRUBIN,TOTAL 0.3 mg/dL (0.2-1.0); TOTAL PROTEIN, SERUM 7.5 g/dL (6.0-8.3)
[2020-07-03 11:49] LABS: INR 1.02 (0.85-1.15); PROTHROMBIN TIME 10.9 SEC (9.6-11.6)
[2020-07-03 11:51] LABS: PARTIAL THROMBOPLASTIN TIME 26.4 SEC (26.3-35.5)
[2020-07-03] MEDS ORDERED: MORPHINE SULFATE 4 MG/1ML SYG ONE (12:17)
[2020-07-03] MEDS ORDERED: ONDANSETRON HCL 4 MG/2 ML VIAL ONE (12:17)
== END 2020-07-03 14:36 | disposition home or self-care (01) ==
LOC: EDH 10:59
DX: S20.211A Contusion of right front wall of thorax, initial encounter (principal); N28.9 Disorder of kidney and ureter, unspecified; E11.65 Type 2 diabetes mellitus with hyperglycemia; I10 Essential (primary) hypertension; I25.10 Atherosclerotic heart disease of native coronary artery without angina pectoris; Z87.891 Personal history of nicotine dependence; W01.198A Fall on same level from slipping, tripping and stumbling with subsequent striking against other object, initial encounter; Y93.01 Activity, walking, marching and hiking; Y92.098 Other place in other non-institutional residence as the place of occurrence of the external cause; Y99.8 Other external cause status
CPT/HCPCS: 36415; 71250; 80053; 82550; 85025; 85610; 85730; 93005; 96374; 96375; 99285; J2270; J2405

== ENCOUNTER → 2020-10-24 | Outpatient (CLI) | payer OTHER | END | disposition home or self-care (01) | LOC: SLP 20:06 | PROVIDERS: ATTEND Internal Medicine | DX: G47.33 Obstructive sleep apnea (adult) (pediatric) (principal) | CPT/HCPCS: 95810 ==

== ENCOUNTER → 2020-10-30 | Outpatient (CLI) | payer OTHER | END | disposition home or self-care (01) | LOC: SLP 20:22 | PROVIDERS: ATTEND Internal Medicine | DX: G47.33 Obstructive sleep apnea (adult) (pediatric) (principal) | CPT/HCPCS: 95811 ==

== ENCOUNTER 2021-05-27 08:00 | Day surgery (SDC) | payer OTHER ==
[2021-05-26 13:30] VITALS: BP 172/60
[~2021-05-27] VITALS: Ht 175.3 cm; Wt 94.3 kg
[2021-05-27] VITALS (12 sets, daily range): BP systolic 118–157; BP diastolic 56–82
[~2021-05-27 08:00] MED LIST changes: +0.9%NACL 1000ML 1,000 ML IV SCH; +GLIP10TA9 PO; +HYDR-4064 PO; +METF-446 PO; +NAPR-1023 PO; +PANT40TA54 PO
[2021-05-27] MEDS ORDERED: SODIUM BICARB 50MEQ 50ML VIAL 50 ML ONE (10:52)
[2021-05-27] MEDS ORDERED: IOHEXOL 350 MG/ML 100ML INFUS..BTL IV ONE (10:53)
[2021-05-27] MEDS ORDERED: LIDOCAINE HCL 400MG/20ML VIAL ONE (10:53)
[2021-05-27] MEDS ORDERED: IOHEXOL-350 50ML VIAL IV ONE (10:53)
[2021-05-27] MEDS ORDERED: NITROGLYCERIN 2 MG VIAL IV ONE (10:53)
[2021-05-27] MEDS ORDERED: HEPARIN 10,000 UNIT/10ML (1,000 UNIT/ML) VIAL ONE (10:53)
[2021-05-27] MEDS ORDERED: BIVALIRUDIN 250 MG/VIAL IV ONE (10:53)
[2021-05-27] MEDS ORDERED: MIDAZOLAM HCL 1 MG/ML 2ML VIAL ONE ×2 (11:24→11:50)
[2021-05-27] MEDS ORDERED: MEPERIDINE-PF 25 MG/ML SYG ONE ×2 (11:24→11:50)
[2021-05-27] MEDS ORDERED: GLUCAGON 1MG KIT 1 MG ML IM PRN (12:30)
[2021-05-27] MEDS ORDERED: 0.9%NACL 1000ML 1,000 ML IV SCH (12:30)
[2021-05-27] MEDS ORDERED: DEXTROSE 50%-WATER 50 ML DISP.SYRIN IV PRN (12:30)
[2021-05-27] MEDS ORDERED: INSULIN HUMULIN R 100 UNIT/ML 3ML SQ SCH (16:30)
== END 2021-05-27 18:40 | disposition home or self-care (01) ==
LOC: DAH 08:00
PROVIDERS: ATTEND Internal Medicine Cardiovascular Disease
DX: I25.119 Atherosclerotic heart disease of native coronary artery with unspecified angina pectoris (principal); I25.82 Chronic total occlusion of coronary artery; I45.10 Unspecified right bundle-branch block; I10 Essential (primary) hypertension; E11.9 Type 2 diabetes mellitus without complications; Z95.1 Presence of aortocoronary bypass graft; Z98.890 Other specified postprocedural states; Z82.49 Family history of ischemic heart disease and other diseases of the circulatory system; Z79.01 Long term (current) use of anticoagulants
CPT/HCPCS: 71045; 82948; 93005; 93459; A4215; A4216; A4221; A4222; A4223 ×3; A4606; A4663; C1760; C1769; C1894; J1644; J2175 ×2; J2250 ×2; J3490 ×3; J7030; Q9965 ×2; Q9967 ×2; 99156; 99157; J0583

== ENCOUNTER 2022-01-19 08:54 | Day surgery (SDC) | payer OTHER ==
[2022-01-13 12:41] LABS: BASOPHILS % (AUTO) 0.7 % (0.0-5.0); EOSINOPHILS % (AUTO) 4.5 % (0.0-8.0); HEMATOCRIT 32.9 % (42-54); LYMPHOCYTES % (AUTO) 15.1 % (21.0-51.0); MEAN CORPUSCULAR HEMOGLOBIN 26.1 pg (27.0-33.0); MEAN CORPUSCULAR HGB CONC 32.2 g/dL (32.0-36.0); MONOCYTES % (AUTO) 10.2 % (3.0-13.0); NEUTROPHILS % (AUTO) 68.4 % (40.0-77.0); PLATELET COUNT (AUTO) 220 K/uL (130-400); RED BLOOD CELL COUNT(AUTO) 4.06 MIL/uL (4.50-6.20); RED CELL DISTRIBUTION WIDTH 14.4 % (11.0-15.5); WHITE BLOOD COUNT (AUTO) 8.5 K/uL (4.8-10.8)
[2022-01-13 12:51] LABS: CREATININE 1.7 mg/dL (0.5-1.5); POTASSIUM 4.7 mmol/L (3.5-5.1)
[2022-01-13 12:55] LABS: INR 0.97 (0.85-1.15); PROTHROMBIN TIME 10.6 SEC (9.6-11.6)
[2022-01-13 12:56] LABS: PARTIAL THROMBOPLASTIN TIME 28.5 SEC (26.3-35.5)
[2022-01-18 10:57] VITALS: BP 119/64
[~2022-01-19] VITALS: Ht 175.3 cm; Wt 96.1 kg
[2022-01-19] VITALS (16 sets, daily range): BP systolic 137–162; BP diastolic 60–81
[~2022-01-19 08:54] MED LIST changes: -0.9%NACL 1000ML 1,000 ML IV SCH; +CEFAZOLIN SODIUM 1 GM VIAL IVP SCH; -HYDR-4064 PO; -MEGE40TA22 PO; -NAPR-1023 PO
[2022-01-19] MEDS ORDERED: 0.9%NACL 1000ML 1,000 ML IV ONE (09:27)
[2022-01-19] MEDS ORDERED: BACITRACIN 28.4 GM OINT TP ONE (12:58)
[2022-01-19] MEDS ORDERED: BUPIVACAINE/PF 0.25% 30ML VIAL IJ ONE (12:58)
[2022-01-19] MEDS ORDERED: PROPOFOL 10 MG/ML 20ML VIAL IV ONE (13:03)
[2022-01-19] MEDS ORDERED: KETAMINE 50MG/ML SYRINGE 50 MG/ML DISP.SYRIN IV ONE (13:03)
[2022-01-19] MEDS ORDERED: LIDOCAINE PF 100MG/5ML (2%) SYRINGE 5ML ONE (13:03)
[2022-01-19] MEDS ORDERED: FENTANYL CITRATE PF 50 MCG/1 ML 2ML VIAL ONE (13:22)
== END 2022-01-19 16:00 | disposition home or self-care (01) ==
LOC: DAH 08:54
PROVIDERS: ATTEND Urology
DX: N47.1 Phimosis (principal); I10 Essential (primary) hypertension; K21.9 Gastro-esophageal reflux disease without esophagitis; E78.5 Hyperlipidemia, unspecified; Z79.01 Long term (current) use of anticoagulants; Z79.899 Other long term (current) drug therapy; Z98.890 Other specified postprocedural states; Z87.891 Personal history of nicotine dependence; Z85.46 Personal history of malignant neoplasm of prostate; Z85.51 Personal history of malignant neoplasm of bladder; Z92.3 Personal history of irradiation
CPT/HCPCS: 71045; 87426; 80048; 85025; 85610; 85730; 36415; 93005; 54161; 82948 ×2; A6260; A4663; A4606; J3010; J0690; J7030; J3490 ×2; J2001; J2704; A4215; A4223; A4222; A4221; A4600

== ENCOUNTER → 2022-04-06 | Outpatient (CLI) | payer OTHER ==
[~2022-04-06] MED LIST changes: -CEFAZOLIN SODIUM 1 GM VIAL IVP SCH; -LABE200T5 PO; +LABE200T7 PO
== END | disposition home or self-care (01) ==
LOC: SHCH 08:29
PROVIDERS: ATTEND Internal Medicine Cardiovascular Disease
DX: I65.21 Occlusion and stenosis of right carotid artery (principal); I25.10 Atherosclerotic heart disease of native coronary artery without angina pectoris; I10 Essential (primary) hypertension
CPT/HCPCS: 93880

== ENCOUNTER → 2022-04-25 | Outpatient (CLI) | payer OTHER ==
[~2022-04-25] MED LIST changes: +IOHEXOL 350 MG/ML 100ML INFUS..BTL IV ONE
== END | disposition home or self-care (01) ==
LOC: RAH 09:32
PROVIDERS: ATTEND Internal Medicine Cardiovascular Disease
DX: I65.21 Occlusion and stenosis of right carotid artery (principal)
CPT/HCPCS: 70498; Q9967

== ENCOUNTER 2022-05-27 12:29 | Emergency (ER) | payer OTHER ==
[~2022-05-27] VITALS: Ht 175.3 cm; Wt 96.6 kg
[~2022-05-27 12:29] MED LIST changes: -IOHEXOL 350 MG/ML 100ML INFUS..BTL IV ONE
[2022-05-27 13:25] LABS: BASOPHILS % (AUTO) 0.4 % (0.0-5.0); EOSINOPHILS % (AUTO) 1.7 % (0.0-8.0); HEMATOCRIT 32.1 % (42-54); LYMPHOCYTES % (AUTO) 13.7 % (21.0-51.0); MEAN CORPUSCULAR HEMOGLOBIN 25.9 pg (27.0-33.0); MEAN CORPUSCULAR HGB CONC 33.3 g/dL (32.0-36.0); MEAN CORPUSCULAR VOLUME 77.7 fL (79-99); MONOCYTES % (AUTO) 9.6 % (3.0-13.0); NEUTROPHILS % (AUTO) 73.5 % (40.0-77.0); PLATELET COUNT (AUTO) 243 K/uL (130-400); RED BLOOD CELL COUNT(AUTO) 4.13 MIL/uL (4.50-6.20); RED CELL DISTRIBUTION WIDTH 14.3 % (11.0-15.5); WHITE BLOOD COUNT (AUTO) 9.4 K/uL (4.8-10.8)
[2022-05-27] MEDS ORDERED: FOLIC ACID 1 MG, THIAMINE HCL 100 MG in 0.9%NACL 1000ML IV ONE (13:30)
[2022-05-27 13:36] LABS: CREATININE 1.5 mg/dL (0.5-1.5); POTASSIUM 4.2 mmol/L (3.5-5.1)
[2022-05-27 13:40] LABS: ALBUMIN 4.2 g/dL (3.5-5.0); TOTAL PROTEIN, SERUM 7.8 g/dL (6.0-8.3)
[2022-05-27 14:01] LABS: APPEARANCE,URINE CLEAR (CLEAR); BILIRUBIN,URINE NEGATIVE (NEGATIVE); COLOR,URINE LIGHT-YELLOW (YELLOW); GLUCOSE, URINE (UA) NEGATIVE (NEGATIVE); KETONES,URINE NEGATIVE (NEGATIVE); LEUKOCYTE ESTERASE ,URINE NEGATIVE Leu/uL (NEGATIVE); NITRATE,URINE NEGATIVE (NEGATIVE); OCCULT BLOOD,URINE SMALL (NEGATIVE); PROTEIN,URINE 10 mg/dL (NEGATIVE); UROBILINOGEN,URINE 0.2 mg/dL (0.2-1.0)
[2022-05-27 14:08] LABS: BACTERIA,URINE RARE /HPF (None Seen); MUCUS,URINE RARE LPF (None Seen); SQUAMOUS EPITHELIAL CELL,UR RARE /HPF (0-2)
[2022-05-27 14:24] VITALS: BP 142/57
== END 2022-05-27 16:22 | disposition home or self-care (01) ==
LOC: EDH 12:29
DX: E86.0 Dehydration (principal); I11.9 Hypertensive heart disease without heart failure; I25.10 Atherosclerotic heart disease of native coronary artery without angina pectoris; E78.00 Pure hypercholesterolemia, unspecified; Z79.82 Long term (current) use of aspirin; Z79.84 Long term (current) use of oral hypoglycemic drugs; Z95.1 Presence of aortocoronary bypass graft
CPT/HCPCS: 99285; 70450; 96365; 71045; 84484; 80053; 85025; 81001; 36415; 74176; 93005; J7030; J3411; J3490

== ENCOUNTER → 2023-08-23 | Outpatient (CLI) | payer OTHER ==
[~2023-08-23] MED LIST changes: +CLOP75TA32 PO
[2023-08-23 12:33] LABS: ALBUMIN 4.2 g/dL (3.5-5.0); BILIRUBIN,TOTAL 0.4 mg/dL (0.2-1.0); CREATININE 1.4 mg/dL (0.5-1.5); POTASSIUM 5.1 mmol/L (3.5-5.1); TOTAL PROTEIN, SERUM 7.2 g/dL (6.0-8.3)
== END | disposition home or self-care (01) ==
LOC: LAB 10:26
PROVIDERS: ATTEND Internal Medicine Cardiovascular Disease
DX: I10 Essential (primary) hypertension (principal); I25.10 Atherosclerotic heart disease of native coronary artery without angina pectoris
CPT/HCPCS: 36415; 80053; 83735; 83880

== ENCOUNTER → 2023-09-28 | Outpatient (CLI) | payer OTHER | END | disposition home or self-care (01) | LOC: SHCH 14:49 | PROVIDERS: ATTEND Internal Medicine Cardiovascular Disease | DX: I51.7 Cardiomegaly (principal); Z95.1 Presence of aortocoronary bypass graft | CPT/HCPCS: 93306 ==